=== PATIENT | male | born 1940 ===

== ENCOUNTER 2022-02-05 13:43 | Emergency (ER) | payer MEDICARE ==
[~2022-02-05] VITALS: Ht 170.2 cm; Wt 79.5 kg
[2022-02-05] MEDS ORDERED: ATROPINE SULFATE 0.1 MG/ML 10 ML SYRINGE IVP STA (13:48)
[2022-02-05] MEDS ORDERED: CALCIUM GLUCONATE 100 MG/ML 10 ML IVP ONE (14:00)
[2022-02-05] MEDS ORDERED: OXYGEN THERAPY IH SCH (14:00)
[2022-02-05] MEDS ORDERED: SODIUM CHLORIDE 0.9% 500 ML IV ONE (14:00)
[2022-02-05] MEDS ORDERED: ONDANSETRON HCL 4 MG/2 ML VIAL IVP ONE (14:00)
[2022-02-05 14:05] LABS: BASOPHILS % (AUTO) 0.7 % (0.0-2.0); EOSINOPHILS % (AUTO) 1.4 % (1.0-6.0); HEMOGLOBIN 8.2 g/dL (13.5-17.5); LYMPHOCYTES # (AUTO) 0.9 K/uL (1.0-4.8); LYMPHOCYTES % (AUTO) 16.6 % (22.0-44.0); MEAN CORPUSCULAR HEMOGLOBIN 32.3 pg (26.0-34.0); MEAN CORPUSCULAR HGB CONC 34.1 G/dL (31.0-37.0); MEAN CORPUSCULAR VOLUME 95 fL (80-100); MONOCYTES # (AUTO) 0.5 K/uL (0.1-1.0); MONOCYTES % (AUTO) 8.8 % (2.0-9.0); NEUTROPHILS # (AUTO) 3.8 K/uL (1.8-7.7); NEUTROPHILS % (AUTO) 72.5 % (40.0-70.0); PLATELET COUNT (AUTO) 117 K/uL (150-450); RED BLOOD CELL COUNT(AUTO) 2.54 MIL/uL (4.50-5.90); RED CELL DISTRIBUTION WIDTH 15.9 % (11.5-14.5)
[2022-02-05 14:11] LABS: GLUCOMETER DEV NAME(LOC) ERT.5; GLUCOSE,POINT OF CARE 135 MG/DL (70-110)
[2022-02-05 14:28] LABS: LACTIC ACID 1.6 mmol/L (0.4-2.0)
[2022-02-05 14:32] LABS: ALANINE AMINOTRANSFERASE 22 U/L (12-78); ALBUMIN 3.1 g/dL (3.4-5.0); ALKALINE PHOSPHATASE 83 U/L (46-116); ANION GAP 18 mmol/L (8-16); ASPARTATE AMINOTRANSFERASE 21 U/L (15-37); BILIRUBIN,TOTAL 0.3 mg/dL (0.1-1.0); CALCIUM, TOTAL 8.9 mg/dL (8.8-10.5); CARBON DIOXIDE 18 mmol/L (22-29); CHLORIDE 93 mmol/L (98-107); CREATININE 4.49 mg/dL (0.60-1.30); GLOMERULAR FILTR. RATE CALC 13 mL/min (>60); GLUCOSE,RANDOM 151 mg/dL (70-110); LIPASE 181 U/L (73-393); POTASSIUM 4.6 mmol/L (3.5-5.1); SODIUM SERUM 129 mmol/L (136-145)
[2022-02-05 14:34] LABS: UREA NITROGEN, BLOOD 194 mg/dL (7-18)
[2022-02-05 14:36] LABS: B-TYPE NATRIURETIC PEPTIDE 96 pg/mL (0-100)
[2022-02-05 14:38] LABS: COVID AG,FIA SOURCE NASOPHARYNGEAL
[2022-02-05] MEDS ORDERED: FLUT16H NASAL (16:36)
[2022-02-05] MEDS ORDERED: POTA-92 PO (16:36)
[2022-02-05] MEDS ORDERED: FINA-27 PO (16:36)
[2022-02-05] MEDS ORDERED: TAMS-13 PO (16:36)
[2022-02-05] MEDS ORDERED: FURO20 PO (16:36)
[2022-02-05] MEDS ORDERED: CLOP75TA60 PO (16:36)
[2022-02-05] MEDS ORDERED: CARV25 PO (16:36)
[2022-02-05] MEDS ORDERED: MONT-35 PO (16:36)
[2022-02-05] MEDS ORDERED: ALLO-45 PO (16:36)
[2022-02-05] MEDS ORDERED: AZEL205. NASAL (16:36)
[2022-02-05] MEDS ORDERED: SODIUM CHLORIDE 0.9% 1,000 ML IV ONE (18:30)
[2022-02-05 19:01] VITALS: BP 116/64
== END 2022-02-05 21:14 | disposition short-term general hospital (02) ==
LOC: EMS 13:43
DX: N17.9 Acute kidney failure, unspecified (principal); D64.9 Anemia, unspecified; R41.82 Altered mental status, unspecified; R77.8 Other specified abnormalities of plasma proteins; Z20.822 Contact with and (suspected) exposure to COVID-19
CPT/HCPCS: 36415; 70450; 71045; 76700; 80053; 82962; 83605; 83690; 83880; 84484; 85025; 87426; 93005; 96361; 96374; 96375; 99285; G0480; J0461; J0610; J2405; J7040